=== PATIENT | female | born 1940 | race African-American/Black ===

== ENCOUNTER → 2016-06-13 | Outpatient (CLI) | payer OTHER, MEDICARE ==
[~2016-06-13] MED LIST: ACETAMINOPHEN PO; ASPIRIN EC81 M1 PO; COUMADIN6 MG PO; FERROUS GLUCON324 MG PO; FERROUS SU324 ( 65 ) PO; FISH OIL 1,0001 EAC1 PO; LOSARTAN POTAS100 MG PO; LOSARTAN-HCTZ1 EAC1 PO; METOPROLOL TART25 MG PO; PERCOCET 10/3251 TAB PO
[2016-06-13 11:08] LABS: URINE APPEARANCE CLEAR; URINE BILIRUBIN NEG (NEG); URINE BLOOD NEG (NEG); URINE COLOR YELLOW; URINE GLUCOSE NEG (NEG); URINE KETONE NEG (NEG); URINE LEUKOCYTE ESTERASE NEG (NEG); URINE NITRATE NEG (NEG); URINE PROTEIN NEG (NEG); URINE SPECIFIC GRAVITY 1.012 (1.003-1.035); URINE UROBILINOGEN 0.2 MG/DL (NEG)
[2016-06-13 11:12] LABS: HEMATOCRIT 30.1 % (35.0-45.0); HEMOGLOBIN 9.6 gm/dL (12.0-16.0); MEAN CELL VOLUME 83.8 FL (83-96); MEAN CORPUSCULAR HEMOGLOBIN 26.7 PG (28-34); MEAN CORPUSCULAR HGB CONC 31.9 g/dL (30-36); MEAN PLATELET VOLUME 7.6 FL (6.5-11.5); RED BLOOD COUNT 3.6 X10e (3.90-5.30); RED CELL DISTRIBUTION WIDTH 15.1 % (11.0-15.5); WHITE BLOOD COUNT 4.2 X10e3 (4.0-10.5)
[2016-06-13 11:14] LABS: URINE SOURCE CLEAN CATCH
[2016-06-13 11:18] LABS: PROTHROMBIN TIME (PATIENT) 10.8 SECONDS (9.6-11.5)
[2016-06-13 11:34] LABS: ALBUMIN SERUM 3.4 g/dL (3.5-5.0); ALKALINE PHOSPHATASE 80 U/L (32-92); ALT (SGPT) 14 U/L (10-40); AST (SGOT) 21 U/L (10-42); BILIRUBIN,TOTAL 0.6 mg/dL (0.2-2.0); BLOOD UREA NITROGEN 9 mg/dL (9-23); BUN/CREATININE RATIO 12.85; CALCIUM SERUM 9.3 mg/dL (8.4-10.2); CARBON DIOXIDE 26 mmol/L (22-31); CHLORIDE 105 mmol/L (100-111); CREATININE SERUM 0.7 mg/dL (0.6-1.4); GLOM FILT RATE Estimated ABOVE60 mL/min (>60); GLUCOSE FASTING 129 mg/dL (70-110); PROTEIN TOTAL SERUM 6.6 g/dL (6.0-8.3); SODIUM 140 mmol/L (135-145)
[2016-06-13 12:14] LABS: CULTURE INDICATED? NO
== END | disposition home or self-care (01) ==
LOC: CAMB 10:04
PROVIDERS: Orthopaedic Surgery
DX: Z01.812 Encounter for preprocedural laboratory examination (principal); M17.11 Unilateral primary osteoarthritis, right knee
CPT/HCPCS: 36415; 80053; 81003; 85027; 85610; 86850; 86870; 86880; 86885; 86900; 86901; 86905; 87070

== ENCOUNTER 2016-06-21 08:12 | Inpatient (IN) | payer OTHER, MEDICARE ==
--- NOTE | ~2016-06-21 | CO ---
Unit #: [id number] #: [id number] Patient: GUADALUPE MERINO [id number] [address] [address] [id number] I MR#: [id number] NAME: GUADALUPE MERINO ROOM: 453 Age: 75 Sex: F Admission Date: 06/21/2016 : 1940 Attending Physician: Kevin Seo M.D. Primary Care Physician: Jaida Avendaño M.D. Consultation Date: 06/21/2016 CONSULTATION REPORT CONSULTING PHYSICIAN Dr. Seo REASON FOR CONSULTATION Medical management. HISTORY OF PRESENT ILLNESS Ms. Merino is a 75-year-old -Iranian, very pleasant female, with a past medical history of hypertension and osteoarthritis. She was admitted by Dr. Seo and underwent a right total knee replacement. Our consult was kindly asked for general medical management. According to the patient, denies any complaints. States that her postop pain is very well controlled. Denies any chest pain, shortness of air, dyspnea, headache, dizziness, fever, chills, nausea, vomiting, diarrhea or abdominal pain. REVIEW OF SYSTEMS Ten point review of systems on this patient is basically negative except as above. PAST MEDICAL HISTORY Significant for: 1. History of hypertension. 2. Dyslipidemia. PAST SURGICAL HISTORY Significant for orthopedic surgery secondary to a hip fracture. MEDICATIONS Current medications on this female include: 1. Senokot-S. 2. Lopressor. 3. Fish oil. 4. Cozaar. 5. Ferrous gluconate. 6. Aspirin. 7. Dilaudid p.r.n. 8. Percocet p.r.n. 9. Ambien. 10. Milk of mag p.r.n. 11. Bisacodyl. 12. Tylenol. 13. Benadryl. Unit #: [id number] #: [id number] Patient: GUADALUPE MERINO 14. Zofran. 15. Celebrex. 16. OxyContin. 17. P.r.n. Zofran. 18. IV Kefzol. 19. Coumadin 5 mg which was started postop. ALLERGIES No known drug allergies. SOCIAL HISTORY No history of tobacco, alcohol or illicit drugs. FAMILY HISTORY Unremarkable. PHYSICAL EXAMINATION GENERAL: The patient is a 75-year-old -Iranian female in no acute distress. VITAL SIGNS: BP 121/79, heart rate 83, respirations 18, temperature 97.3. HEENT: Head is atraumatic. Pupils equal, round, reactive to light and accommodation. Extraocular muscles intact. Oropharynx clear. NECK: Supple. No masses, no JVD, no bruits. CHEST: Clear to auscultation bilaterally. CARDIOVASCULAR: Normal S1, S2, no murmurs. ABDOMEN: Soft, nontender, nondistended. EXTREMITIES: Lower extremities without any cyanosis, clubbing or edema. NEUROLOGICAL: Patient is grossly intact. No focal deficits. DIAGNOSTIC STUDIES LABORATORY: White count 4.1, H and H 10.3 and 32.0, PT/INR 10.8 and 1.0. ASSESSMENT AND PLAN 1. Osteoarthritis, status post right total knee replacement: Continue postop pain management. Continue supportive care. Pain is well controlled. Was started on Coumadin per (1) . Continue PT/OT. 2. Hypertension, stable: Continue current. 3. Dyslipidemia: Continue fish oil. 4. GI and DVT prophylaxis: Continue Coumadin and aspirin. Start PPI. I would like to thank Dr. Seo for allowing us to participate in this patient's care. We will follow along with you. Dictated by.Gilberto Simon M.D. SHARONA/fabiola TD: 06/22/2016 05:21 JOB #: [id number] Unit #: [id number] #: [id number] Patient: ANGELIQUEGUADALUPE CONSULTATION REPORT X Rudi Simon MD CONSULTATION REPORT
--- NOTE | ~2016-06-21 | OR ---
Unit #: [id number] #: [id number] Patient: GUADALUPE MERINO [id number] [facility] [place] [facility]. [place], [place] [address] [id number] I MR#: [id number] NAME: GUADALUPE MERINO ROOM: 453 Date of Procedure: 06/21/2016 Admission Date: 06/21/2016 Surgeon: Kevin Seo M.D. : 1940 Attending Physician: Kevin Seo M.D. Primary Care Physician: Jaida Avendaño M.D. OPERATIVE REPORT PREOPERATIVE DIAGNOSIS Primary localized osteoarthritis of the right knee. POSTOPERATIVE DIAGNOSIS Primary localized osteoarthritis of the right knee. PROCEDURE PERFORMED Right total knee. ASSISTANTS Francisco J Molina and Emily Pérez. ANESTHESIA Adductor canal block plus general. ESTIMATED BLOOD LOSS About 100 mL to 150 mL. DESCRIPTION OF PROCEDURE The patient was brought to the operating room, given 1 g of Kefzol. She was then given an adductor canal block. The Kefzol will be continued postop, but discontinued within 23 hours of the start time. She was brought back to the operating room, given a general anesthetic. Tourniquet was placed around the right thigh. The right leg was prepped and draped in a sterile fashion. Tourniquet was inflated to 300. The patient then had the straight anterior skin incision made. Subcu dissected away and a medial arthrotomy performed. Patella was slid to the side. Osteophytes were removed from the femur. The intramedullary guide was used and a 6-degree valgus cut was made on the distal femur. The femur was sized and found to be a size 4. Anterior-posterior cutting block was applied. Rotation was checked in the knee. Anterior and posterior cuts were made along with the chamfer cuts. Proximal tibial cut was made using a 0-degree cutting block and then the remaining meniscal fragments were debrided. The tibia was sized at a 3. We then removed any posterior condylar osteophytes. The posterior hip capsule and the periosteum were injected with a ropivacaine mixture. Then the trials were applied. The drill holes were made for lugs on the femoral component. We found we needed a 4 narrow prosthesis. The patient then had the patella grasped with 2 towel clips, measured 25 mm thick, cut smooth at 14 and a 41 patella was the appropriate size. The 3 drill holes were made. Trial patella applied and it tracked properly. We then removed all the trials, used the drill and punch on the tibial tray. The knee was irrigated and Unit #: [id number] #: [id number] Patient: GUADALUPE MERINO dried while the cement was mixed and then all 3 components were cemented simultaneously. Once again, it was a size 3 femur cruciate retaining, size 3 tibial tray, and a 41 patella from the [employer] PFC Sigma Knee System with an 8 mm insert. The rest of ropivacaine mixture was injected. The tourniquet was released. Hemostasis was obtained and then the wound was closed, after it was irrigated with Betadine and bacitracin, using 0 Ethibond in the arthrotomy, 0 and 2-0 Vicryl in the subcutaneous, and sandra in the skin. Dictated by... Vasu Ty/nelia TD: 06/22/2016 14:51 JOB #: [id number] OPERATIVE REPORT X Kevin Seo MD X PROCEDURE OPERATIVE NOTE
--- NOTE | ~2016-06-21 | US85 ---
[facility] A Service of [facility] & [facility] RADIOLOGY TEXT RESULTS PATIENT: GUADALUPE MERINO LOCATION: C4B 453-01 : 38 UNIT #: [id number] AGE: [address]: Kevin Seo MD SEX: F ORDER DR: [id number] [facility] [address] [place], [place] [address] [id number] I MR#: [id number] Acc #: [id number] NAME: GUADALUPE MERINO : 1940 SEX: F STUDY DATE/TIME: 06/22/2016 16:13 UNIT: [facility] ROOM: [facility] STUDY DESCRIPTION: US LE Veins Unilat or Ltd Stdy Attending Physician: Kevin Seo M.D. Ordering Physician: Rudi Simon M.D. Primary Care Physician: Jaida Avendaño M.D. MEDICAL IMAGING REPORT This report is preliminary unless electronic signature is present EXAM Right lower extremity venous duplex 06/22/2016 HISTORY Right lower extremity edema for 1 day status post knee replacement surgery yesterday. Evaluate for deep vein thrombosis. TECHNIQUE Venous ultrasound examination of the left lower extremity was performed using grayscale, spectral Doppler and color flow Doppler imaging. FINDINGS The examination is negative. There is no evidence of left lower extremity deep venous thrombus from the groin to the lower calf. Visualized greater saphenous vein is also patent. IMPRESSION Negative examination. No evidence of left lower extremity deep venous thrombosis. Dictated by... Srikanth Bhandari M.D. THIS IS AN ELECTRONICALLY VERIFIED REPORT Srikanth Bhandari M.D. at 06/25/2016 10:36 AM PHILIP/tasha TD: 06/23/2016 00:17 JOB #: [id number] MEDICAL IMAGING REPORT COPY
[~2016-06-21 08:12] MED LIST changes: -COUMADIN6 MG PO; -FERROUS GLUCON324 MG PO; -PERCOCET 10/3251 TAB PO
[2016-06-21 09:07] LABS: HEMOGLOBIN 10.3 gm/dL (12.0-16.0); MEAN CELL VOLUME 83.4 FL (83-96); MEAN CORPUSCULAR HEMOGLOBIN 26.8 PG (28-34); MEAN CORPUSCULAR HGB CONC 32.1 g/dL (30-36); MEAN PLATELET VOLUME 7.4 FL (6.5-11.5); RED BLOOD COUNT 3.84 X10e (3.90-5.30); RED CELL DISTRIBUTION WIDTH 14.8 % (11.0-15.5); WHITE BLOOD COUNT 4.1 X10e3 (4.0-10.5)
[2016-06-21 09:18] LABS: PROTHROMBIN TIME (PATIENT) 10.8 SECONDS (9.6-11.5)
[2016-06-22 03:13] LABS: BASOPHIL% 0.1 % (0-2.5); HEMATOCRIT 24.3 % (35.0-45.0); LYMPHOCYTE# 0.6 X10e3 (1.0-3.5); LYMPHOCYTE% 7.8 % (17.0-45.0); MEAN CORPUSCULAR HEMOGLOBIN 26.9 PG (28-34); MEAN CORPUSCULAR HGB CONC 32.1 g/dL (30-36); MEAN PLATELET VOLUME 7.7 FL (6.5-11.5); MONOCYTE# 0.8 X10e3 (0-1.0); MONOCYTE% 10.4 % (3.0-12.0); NEUTROPHIL# 6.4 X10e3 (1.5-7.1); NEUTROPHIL% 81.7 % (40-75); PLATELET COUNT 184 X10e3 (140-420); RED BLOOD COUNT 2.89 X10e (3.90-5.30); RED CELL DISTRIBUTION WIDTH 14.7 % (11.0-15.5); WHITE BLOOD COUNT 7.9 X10e3 (4.0-10.5)
[2016-06-22 03:14] LABS: DIFF IND YES; HEMOGLOBIN 7.8 gm/dL (12.0-16.0)
[2016-06-22 03:21] LABS: INR 1.3; PROTHROMBIN TIME (PATIENT) 14.3 SECONDS (9.6-11.5)
[2016-06-22 03:31] LABS: BLOOD UREA NITROGEN 13 mg/dL (9-23); BUN/CREATININE RATIO 21.66; CALCIUM SERUM 8.7 mg/dL (8.4-10.2); CARBON DIOXIDE 28 mmol/L (22-31); CHLORIDE 104 mmol/L (100-111); CREATININE SERUM 0.6 mg/dL (0.6-1.4); GLOM FILT RATE Estimated ABOVE60 mL/min (>60); GLUCOSE FASTING 90 mg/dL (70-110); POTASSIUM 4.7 mmol/L (3.5-5.1); SODIUM 136 mmol/L (135-145)
[2016-06-22 03:46] LABS: HYPOCHROMIA SL; PLATELET ESTIMATE DECREASED (NORMAL)
[2016-06-22] MEDS ORDERED: PERCOCET 10/3251 TAB PO (12:29)
[2016-06-22] MEDS ORDERED: COUMADIN6 MG PO (12:31)
[2016-06-22] MEDS ORDERED: FERROUS GLUCON324 MG PO (12:33)
== END 2016-06-22 18:11 | disposition home health service (06) | DRG 470 ==
LOC: CSUR 08:12 → CPACUOF 09:15 → C4B 15:26
PROVIDERS: Orthopaedic Surgery
PROC: 0SRC0J9 Replacement of Right Knee Joint with Synthetic Substitute, Cemented, Open Approach (ICD-10-PCS; principal; 2016-06-21 10:00)
DX: M17.11 Unilateral primary osteoarthritis, right knee (principal); I10 Essential (primary) hypertension; E78.5 Hyperlipidemia, unspecified; Z90.710 Acquired absence of both cervix and uterus; Z82.49 Family history of ischemic heart disease and other diseases of the circulatory system; Z79.82 Long term (current) use of aspirin
CPT/HCPCS: 80048; 85025; 85027; 85610; 86850; 86870; 86900; 86901; 86922; 93971; 97110; 97116; 97162; 97166; 97530; 97535; C1776; G8978-GP; G8979-GP; G8980-GP; G8987-GO; G8988-GO; G8989-GO; J0131; J0171; J0690; J0735; J1100; J1650; J1885; J2250; J2405; J2795; J3010